=== PATIENT | male | born 1980 | race Caucasian/White ===

== ENCOUNTER 2022-01-06 18:39 | Emergency (ER) | payer OTHER ==
[~2022-01-06] VITALS: Ht 175.3 cm; Wt 96.0 kg
[2022-01-06 20:14] VITALS: BP 156/92
[2022-01-06] MEDS ORDERED: HYDROCODONE/ACETAMINOPHEN 5/325MG TABLET PO ONE (23:00)
[2022-01-07] MEDS ORDERED: AMOX1TAB16 MT (00:19)
[2022-01-07] MEDS ORDERED: ACET-2708 MT (00:19)
[2022-01-07] MEDS ORDERED: HYDR-4001 MT (00:19)
== END 2022-01-07 00:59 | disposition home or self-care (01) ==
LOC: ER 18:39
DX: K02.9 Dental caries, unspecified (principal); R68.84 Jaw pain; Z79.899 Other long term (current) drug therapy
CPT/HCPCS: 70486; 99284